=== PATIENT | male | born 1960 | race Caucasian/White ===

== ENCOUNTER 2019-11-05 12:30 | Observation (INO) | payer BC, OTHER ==
--- NOTE | 2019-11-05 12:51 | EDM.PDOC ---
ED HPI GENERAL MEDICAL PROBLEM - General Chief Complaint: General Stated Complaint: NAUSEA Time Seen by Provider: 11/05/19 12:45 Source of Information: Reports: Patient, Family, RN History Limitations: Reports: No Limitations - History of Present Illness INITIAL COMMENTS - FREE TEXT/NARRATIVE: 59 yo male presents with abdominal pain, N/V, started this am around 3am. [id number] brought him in. Pt states he drinks about 6-7 beer every evening and has tolerated this fine in the past, but thinks he may need to limit this to 3 per night. States the last time he had this pain was when he did have the 6-7 drinks in a night. States past hx of upper GI and lower GI. [facility] this [facility]. States he ate very little last night. IV fluids started and pt feeling improved after 1 liter of Normal saline. Lactic acid is elevated. This may be from alcoholism, but will check U/A, blood cultures and start Rocephin 1 gm IV X 1. will recheck the Lactic acid this evening and in the am. 2nd bolus of IV fluids given. will admit to observation, Protonix IV prophylaxis, Tylenol prn pain, Mylanta prn pain, Zofran prn for nausea. Will start CIWA assess and Ativan as needed per protocol. Abdominal Pain Score (Numeric/FACES): 5 - Related Data Allergies Allergy/AdvReac Type Severity Reaction Status Date / Time No Known Allergies Allergy Verified 11/05/19 14:41 Home Meds: Home Meds NK [No Known Home Meds] 11/05/19 [History] ED ROS GENERAL - Review of Systems Review Of Systems: See Below Constitutional: Reports: Fever. Denies: Chills HEENT: Reports: No Symptoms Respiratory: Denies: Shortness of Breath, Cough Cardiovascular: Reports: Other (chest pressure). Denies: Dyspnea on Exertion, Edema GI/Abdominal: Reports: Abdominal Pain, Nausea. Denies: Black Stool, Bloody Stool, Constipation, Diarrhea, Hematemesis Musculoskeletal: Reports: No Symptoms Skin: Reports: No Symptoms Neurological: Reports: No Symptoms Psychiatric: Reports: No Symptoms ED EXAM, GENERAL - Physical Exam Exam: See Below Exam Limited By: No Limitations General Appearance: Alert, No Apparent Distress Ears: Hearing Grossly Normal Nose: No: Nasal Tenderness, Nasal Drainage Throat/Mouth: Normal Lips, Normal Voice, No Airway Compromise Head: Atraumatic, Normocephalic Neck: Supple, Non-Tender, Full Range of Motion Respiratory/Chest: No Respiratory Distress, Lungs Clear, Normal Breath Sounds Cardiovascular: Normal Peripheral Pulses, Regular Rate, Rhythm, No Edema GI/Abdominal: Normal Bowel Sounds, Soft, No Distention Extremities: Normal Range of Motion, Non-Tender, No Pedal Edema, Normal Capillary Refill Neurological: Alert, Oriented, Normal Cognition Psychiatric: Normal Affect, Normal Mood Skin Exam: Warm, Dry, Normal Color Lymphatic: No Adenopathy Course - Vital Signs Last Recorded V/S: Last Vital Signs Temp 98.4 F 11/06/19 04:00 Pulse 76 11/06/19 04:00 Resp 16 11/06/19 04:00 BP 153/82 H 11/06/19 04:00 Pulse Ox 99 11/06/19 04:00 - Orders/Labs/Meds Orders: Active Orders 24 hr Category Date Time Status EKG Documentation Completion [RC] ASDIRECTED Care 11/05/19 12:48 Active CULTURE BLOOD [BC] Stat Lab 11/05/19 14:49 Received CULTURE BLOOD [BC] Stat Lab 11/05/19 16:20 Received Sodium Chloride 0.9% [Normal Saline] 1,000 ml Med 11/05/19 13:00 Active IV ASDIRECTED Sodium Chloride 0.9% [Normal Saline] 1,000 ml Med 11/05/19 14:00 Active IV ASDIRECTED Sodium Chloride 0.9% [Normal Saline] 1,000 ml Med 11/05/19 15:00 Active IV ASDIRECTED Medication Orders Acetaminophen (Tylenol) 650 mg PO Q6H PRN PRN Reason: Pain (mild 1-3) Last Admin: 11/05/19 16:49 Dose: 650 mg Al Hydroxide/Mg Hydroxide (Mag-Al Plus) 30 ml PO Q4H PRN PRN Reason: Abdominal Pain Sodium Chloride (Normal Saline) 1,000 mls @ 999 mls/hr IV ASDIRECTED ELIZA Last Admin: 11/05/19 12:58 Dose: 999 mls/hr Sodium Chloride (Normal Saline) 1,000 mls @ 125 mls/hr IV ASDIRECTED ELIZA Last Infusion: 11/06/19 04:17 Dose: 75 mls/hr Infusion: 11/05/19 20:30 Dose: 75 mls/hr Admin: 11/05/19 14:05 Dose: 125 mls/hr Sodium Chloride (Normal Saline) 1,000 mls @ 999 mls/hr IV ASDIRECTED ELIZA Ceftriaxone Sodium 1 gm/ (Sodium Chloride) 50 mls @ 200 mls/hr IV ONETIME ONE Stop: 11/06/19 08:14 Lorazepam (Ativan) 0.5 mg PO Q4H PRN; Protocol PRN Reason: Anxiety Last Admin: 11/05/19 18:11 Dose: 0.5 mg Ondansetron HCl (Zofran) 4 mg IVPUSH Q8H PRN PRN Reason: Nausea Labs: Laboratory Tests 11/05/19 11/05/19 11/05/19 Range/Units 13:30 13:30 13:30 WBC 11.7 H D (4.0-11.0) K/uL RBC 4.54 (4.50-6.50) M/uL Hgb 14.6 (13.0-18.0) g/dL Hct 39.9 L (40.0-54.0) % MCV 88 (76-96) fL MCH 32.2 H (27.0-32.0) pg MCHC 36.6 H (31.0-35.0) g/dL RDW 13.2 (11.0-16.0) % Plt Count 127 L (150-400) K/uL MPV 8.2 (6.0-10.0) fL Neut % (Auto) 90.4 H (45.0-70.0) % Lymph % (Auto) 4.4 L (20.0-40.0) % [place] % (Auto) 4.9 (3.0-10.0) % Eos % (Auto) 0.1 L (1.0-5.0) % Baso % (Auto) 0.2 (0.0-0.5) % Neut # (Auto) 10.56 H (2.00-7.50) K/uL Lymph # (Auto) 0.51 L (1.50-4.00) K/uL [place] # (Auto) 0.57 (0.20-0.80) K/uL Eos # (Auto) 0.01 L (0.04-0.40) K/uL Baso # (Auto) 0.02 (0.02-0.10) K/uL Sodium 135 L (136-145) mmol/L Potassium 4.8 D (3.5-5.1) mmol/L Chloride 96 L (98-107) mmol/L Carbon Dioxide 16.1 L D (21.0-32.0) mmol/L Anion Gap 27.7 H (5.0-15.0) mmol/L BUN 11 D (8-26) mg/dL Creatinine 0.95 (0.70-1.30) mg/dL Est Cr Clr Drug Dosing 87.54 mL/min Estimated GFR (MDRD) > 60 (>60) MLS/MIN BUN/Creatinine Ratio 11.6 (6-25) Glucose 92 D (74-100) mg/dL Lactic Acid 4.5 H (0.4-2.0) mmol/L Calcium 8.4 L (8.5-10.1) mg/dL Magnesium (1.8-2.4) mg/dL Total Bilirubin 1.1 H D (0.0-1.0) mg/dL AST 57 H (15-37) U/L ALT 44 (12-78) U/L Alkaline Phosphatase 61 (46-116) U/L Troponin I < 0.017 (0.000-0.060) ng/mL Total Protein 7.3 (6.4-8.2) g/dL Albumin 4.2 (3.4-5.0) g/dL Globulin 3.1 (2.2-4.2) g/dL Albumin/Globulin Ratio 1.4 (0.8-2.0) Lipase 91 (73-393) U/L TSH, Ultra Sensitive 0.280 L D (0.358-3.740) uIU/mL Urine Color Urine Appearance (CLEAR) Urine pH (5.0-8.0) Ur Specific [place] (1.003-1.030) Urine Protein (NEGATIVE) mg/dL Urine Glucose (UA) (NEGATIVE) mg/dL Urine Ketones (NEGATIVE) mg/dL Urine Occult Blood (NEGATIVE) Urine Nitrite (NEGATIVE) Urine Bilirubin (NEGATIVE) Urine Urobilinogen (0.2-1.0) E.U./dL Ur Leukocyte Esterase (NEGATIVE) Urine RBC /HPF Urine WBC /HPF Ur Squamous Epith Cells /HPF 11/05/19 11/05/19 Range/Units 13:30 14:49 WBC (4.0-11.0) K/uL RBC (4.50-6.50) M/uL Hgb (13.0-18.0) g/dL Hct (40.0-54.0) % MCV (76-96) fL MCH (27.0-32.0) pg MCHC (31.0-35.0) g/dL RDW (11.0-16.0) % Plt Count (150-400) K/uL MPV (6.0-10.0) fL Neut % (Auto) (45.0-70.0) % Lymph % (Auto) (20.0-40.0) % [place] % (Auto) (3.0-10.0) % Eos % (Auto) (1.0-5.0) % Baso % (Auto) (0.0-0.5) % Neut # (Auto) (2.00-7.50) K/uL Lymph # (Auto) (1.50-4.00) K/uL [place] # (Auto) (0.20-0.80) K/uL Eos # (Auto) (0.04-0.40) K/uL Baso # (Auto) (0.02-0.10) K/uL Sodium (136-145) mmol/L Potassium (3.5-5.1) mmol/L Chloride (98-107) mmol/L Carbon Dioxide (21.0-32.0) mmol/L Anion Gap (5.0-15.0) mmol/L BUN (8-26) mg/dL Creatinine (0.70-1.30) mg/dL Est Cr Clr Drug Dosing mL/min Estimated GFR (MDRD) (>60) MLS/MIN BUN/Creatinine Ratio (6-25) Glucose (74-100) mg/dL Lactic Acid (0.4-2.0) mmol/L Calcium (8.5-10.1) mg/dL Magnesium 1.8 (1.8-2.4) mg/dL Total Bilirubin (0.0-1.0) mg/dL AST (15-37) U/L ALT (12-78) U/L Alkaline Phosphatase (46-116) U/L Troponin I (0.000-0.060) ng/mL Total Protein (6.4-8.2) g/dL Albumin (3.4-5.0) g/dL Globulin (2.2-4.2) g/dL Albumin/Globulin Ratio (0.8-2.0) Lipase (73-393) U/L TSH, Ultra Sensitive (0.358-3.740) uIU/mL Urine Color Yellow Urine Appearance Clear (CLEAR) Urine pH 5.5 (5.0-8.0) Ur Specific [place] 1.025 (1.003-1.030) Urine Protein Negative (NEGATIVE) mg/dL Urine Glucose (UA) Negative (NEGATIVE) mg/dL Urine Ketones 80 H (NEGATIVE) mg/dL Urine Occult Blood Negative (NEGATIVE) Urine Nitrite Negative (NEGATIVE) Urine Bilirubin Negative (NEGATIVE) Urine Urobilinogen 0.2 (0.2-1.0) E.U./dL Ur Leukocyte Esterase Negative (NEGATIVE) Urine RBC Not seen /HPF Urine WBC 0-5 H /HPF Ur Squamous Epith Cells Few /HPF Meds: Medications Generic Name Dose Route Start Last Admin Trade Name Freq PRN Reason Stop Dose Admin Acetaminophen 650 mg 11/05/19 15:27 11/05/19 16:49 Tylenol PO 650 mg Q6H PRN Administration Pain (mild 1-3) Al Hydroxide/Mg Hydroxide 30 ml 11/05/19 17:19 Mag-Al Plus PO Q4H PRN Abdominal Pain Sodium Chloride 1,000 mls @ 999 mls/hr 11/05/19 13:00 11/05/19 12:58 Normal Saline IV 999 mls/hr ASDIRECTED ELIZA Administration Sodium Chloride 1,000 mls @ 125 mls/hr 11/05/19 14:00 11/06/19 04:17 Normal Saline IV Infused ASDIRECTED ELIZA Infusion Sodium Chloride 1,000 mls @ 999 mls/hr 11/05/19 15:00 Normal Saline IV ASDIRECTED ELIZA Ceftriaxone Sodium 1 gm/ 50 mls @ 200 mls/hr 11/06/19 08:00 Sodium Chloride IV 11/06/19 08:14 ONETIME ONE Lorazepam 0.5 mg 11/05/19 17:18 11/05/19 18:11 Ativan PO 0.5 mg Q4H PRN Administration Anxiety Protocol Ondansetron HCl 4 mg 11/05/19 15:27 Zofran IVPUSH Q8H PRN Nausea Discontinued Medications Generic Name Dose Route Start Last Admin Trade Name Cristal PRN Reason Stop Dose Admin Ceftriaxone Sodium 1 gm/ 50 mls @ 200 mls/hr 11/05/19 14:52 11/05/19 16:15 Sodium Chloride IV 11/05/19 15:06 200 mls/hr ONETIME ONE Administration Pantoprazole Sodium 80 mg/ 100 mls @ 200 mls/hr 11/05/19 15:28 11/05/19 16:56 Sodium Chloride IV 11/05/19 15:57 200 mls/hr .BOLUS ONE Administration Thiamine HCl 100 mg 11/05/19 17:54 11/05/19 18:05 Vitamin B-1 IM 11/05/19 17:55 100 mg ONETIME ONE Administration - Re-Assessments/Exams Free Text/Narrative Re-Assessment/Exam: 11/05/19 14:54 Lactic acid is elevated 4.5 today. Will bolus with 2nd Liter IV fluids. U/A w micro and blood cultures x 2. Rocephin 1 gm IV after blood cultures. 11/05/19 18:10 TC to ehospitalist with labs and review of tx thus far. Protonix IV given, Pt is eating supper, poor appetite, upper abdominal pain for quite some time and did have upper GI and colonoscopy studies in past and states normal results. Thiamine 100 mg IM given and start of Ativan per [facility] protocol. Departure - Departure Time of Disposition: 16:35 (11/05/2019) Disposition: Refer to Observation Condition: Good Clinical Impression: Dehydration, Upper abdominal pain, unspecified, Ketoacidosis - Discharge Information *PRESCRIPTION DRUG MONITORING PROGRAM REVIEWED*: Not Applicable *COPY OF PRESCRIPTION DRUG MONITORING REPORT IN PATIENT ANDREA: Not Applicable Sepsis Event Note - Evaluation Current Stage of Sepsis: Ruled Out Reason for Ruling Out Sepsis: LE 11-05-19: no source of infection noted, no cough, no UTI, no change in skin integrity. Ketoacidosis r/t alcohol use likely contributing to elevated lactic acid. - Focused Exam Date Exam was Performed: 11/06/19 Time Exam was Performed: 07:58 - My Orders Last 24 Hours: My Active Orders 11/05/19 12:48 EKG Documentation Completion [RC] ASDIRECTED 11/05/19 13:00 Sodium Chloride 0.9% [Normal Saline] 1,000 ml IV ASDIRECTED 11/05/19 14:00 Sodium Chloride 0.9% [Normal Saline] 1,000 ml IV ASDIRECTED 11/05/19 14:49 CULTURE BLOOD [BC] Stat 11/05/19 15:00 Sodium Chloride 0.9% [Normal Saline] 1,000 ml IV ASDIRECTED 11/05/19 16:20 CULTURE BLOOD [BC] Stat - Assessment/Plan Last 24 Hours: My Active Orders 11/05/19 12:48 EKG Documentation Completion [RC] ASDIRECTED 11/05/19 13:00 Sodium Chloride 0.9% [Normal Saline] 1,000 ml IV ASDIRECTED 11/05/19 14:00 Sodium Chloride 0.9% [Normal Saline] 1,000 ml IV ASDIRECTED 11/05/19 14:49 CULTURE BLOOD [BC] Stat 11/05/19 15:00 Sodium Chloride 0.9% [Normal Saline] 1,000 ml IV ASDIRECTED 11/05/19 16:20 CULTURE BLOOD [BC] Stat Plan: Placed on observation with dehydration, chronic upper, abdominal pain, ketoacidosis, corrected with IV fluid bolus 2 liter. Pain to abdomen has improved. Labs reviewed. Will repeat Lactic acid at 1730 today and repeat labs in am. Will cover pt with CIAWA protocol if needed for any alcohol withdrawal. Iv fluids continue at 125cc/hr and close monitor for pt for any increase in abdominal pain.
[2019-11-05] MEDS ORDERED: Sodium Chloride 0.9% 1,000 ML IV SCH ×3 (13:00→15:00)
[2019-11-05] MEDS ORDERED: cefTRIAXone 1 GM in Sodium Chloride 0.9% 50 ML IV ONE (14:52)
[2019-11-05] MEDS ORDERED: Ondansetron 4 MG/2 ML SDV IVPUSH PRN (15:27)
[2019-11-05] MEDS ORDERED: Acetaminophen 325 MG Tab PO PRN (15:27)
[2019-11-05] MEDS ORDERED: Pantoprazole 80 MG in Sodium Chloride 0.9% 100 ML IV ONE (15:28)
[2019-11-05] MEDS ORDERED: LORazepam 0.5 MG Tab PO PRN (17:18)
[2019-11-05] MEDS ORDERED: Aluminum Hydroxide/Magnesium Hydroxide/Simethicone Susp 30 ML Cup PO PRN (17:19)
[2019-11-05] MEDS ORDERED: Thiamine 200 MG/2 ML MDV IM ONE (17:54)
--- NOTE | 2019-11-05 18:57 | PCM.SN ---
- Free Text/Narrative Note: Reji Davenport Hospitalist Consultation Note Hospitalist was consulted Consult on Anion Gap and lactic acidosis on Mr Tao Small 58 who presented with abdominal pain, nausea and vomiting (non- bloody) following alcohol use last night. He also has poor appetite. HPI: 59 y/o M with chronic alcohol misuse consumes 6-7 beer every night, chronic abdominal pain, [facility] and [facility] unknown time frame. His abdominal pains exacerbated by drinking 6-7 beer occasionally and he thinks he should cut back to 3/night. He does not have any other medical problems on chart review. His lab work was remarkable for elevated anion gap 27.2 and lactic acidosis to 4.5. WBC was 11.7, platelet count 127, CO2 16.1, BUN11, Cr 0.95, Tbili 1.1, AST57, ALT44. Lipase 91 ROS: See Marlyn Miguel CNP ED note. Home Meds: None per EMR Pertinent Medical Hx: None documented in EMR Pertinent social Hx: See EMR Vital Signs: Reviewed see EMR NOT A VIDEO CALL Labs: reviewed see HPI above for pertinent finding. Imaging: Not performed. Assessment/Plan: Lactic acidosis in the setting of alcohol abuse, not meeting sepsis criteria. Resolved following Normal saline administration. Elevated anion gap. Likely secondary to ketoacidosis from alcohol use, ? starvation ketoacidosis from poor oral intake, other causes like sepsis, DKA, ruled out, pt. is not diabetic, does not have foci of infection. Discussed with Marlyn Miguel that this lab can be repeated, timing dependent on severity of patient illness or acute changes. Acute on Chronic abdominal pain patient should have US abdomen and gallbladder to evaluate for Cholelithiasis, cholecystitis, Can also evaluate for hepatocellular disease from chronic alcohol misuse. Patient should be referred to GI as an OP for further management of chronic abdominal pain. No indication for antibiotics at this time. Continue with PPI ?alcohol induced gastritis. Rest of care per Marlyn Miguel CNP note. Thank you for involving [facility] in the care of this patient. Please call with questions/concerns.
[2019-11-06] MEDS ORDERED: cefTRIAXone 1 GM in Sodium Chloride 0.9% 50 ML IV ONE (08:00)
[2019-11-06 08:06] VITALS: BP 157/85; PULSE 89
--- NOTE | 2019-11-09 14:32 | PCM.DCSUM1 ---
Discharge Summary - Discharge Data Discharge Date: 11/06/19 Discharge Disposition: Home, Self-Care 01 Condition: Good - Referral to Home Health Primary Care Physician: PCP None - Patient Instructions Diet: Regular Diet as Tolerated Activity: Rest and Relax Today Driving: May Drive Today Notify Provider of: Fever, Nausea and/or Vomiting Other/Special Instructions: Monitor BP and goal of less than 130/80. U/S and referral to GI specialist at [place], [place]. Recommend limit of alcoholic beverages to 2/day. Consider increase of calcium in diet. RTC in 2-3 weeks for follow-up. Return to ER if symptoms worsen. - Discharge Plan *PRESCRIPTION DRUG MONITORING PROGRAM REVIEWED*: Not Applicable *COPY OF PRESCRIPTION DRUG MONITORING REPORT IN PATIENT ANDREA: Not Applicable Prescriptions/Med Rec: Pantoprazole Sodium 40 mg PO DAILY #30 tablet. Home Medications: Home Meds Pantoprazole Sodium 40 mg PO DAILY #30 tablet. 11/06/19 [Rx] Patient Handouts: Gastritis, Adult, [id number], Dehydration, Adult, Easy-to- Read Forms: ED Department Discharge Referrals: PCP,None [Primary Care Provider] - - Discharge Summary/Plan Comment DC Time >30 min.: No Discharge Summary/Plan Comment: Follow-up with order for outpt Abdominal U/S for work-up of choleycystitis or pancreatitis. Referral to GI for follow-up of chronic upper GI pain. Protonix daily ordered. Symptoms have improved. Recommend to limit alcohol use. Diet as tolerated. Rest and relax today. F/U in clinic in 2-3 weeks with PCP. - Patient Data Vitals - Most Recent: Last Vital Signs Temp 98.0 F 11/06/19 08:00 Pulse 89 11/06/19 08:00 Resp 16 11/06/19 08:00 BP 157/85 H 11/06/19 08:00 Pulse Ox 99 11/06/19 08:00 Weight - Most Recent: 160 lb 8 oz [id number] Results - Last 24 hrs: Microbiology 11/05/19 16:20 Aerobic Blood Culture - Preliminary Blood NO GROWTH AFTER 3 DAYS Anaerobic Blood Culture - Preliminary NO GROWTH AFTER 3 DAYS 11/05/19 15:05 Aerobic Blood Culture - Preliminary Blood NO GROWTH AFTER 3 DAYS Anaerobic Blood Culture - Preliminary NO GROWTH AFTER 3 DAYS Med Orders - Current: Current Medications Discontinued Medications Acetaminophen (Tylenol) 650 mg PO Q6H PRN PRN Reason: Pain (mild 1-3) Last Admin: 11/05/19 16:49 Dose: 650 mg Al Hydroxide/Mg Hydroxide (Mag-Al Plus) 30 ml PO Q4H PRN PRN Reason: Abdominal Pain Sodium Chloride (Normal Saline) 1,000 mls @ 999 mls/hr IV ASDIRECTED [facility] Last Admin: 11/05/19 12:58 Dose: 999 mls/hr Sodium Chloride (Normal Saline) 1,000 mls @ 125 mls/hr IV ASDIRECTED [facility] Last Infusion: 11/06/19 04:17 Dose: Infused Sodium Chloride (Normal Saline) 1,000 mls @ 999 mls/hr IV ASDIRECTED [facility] Ceftriaxone Sodium 1 gm/ (Sodium Chloride) 50 mls @ 200 mls/hr IV ONETIME ONE Stop: 11/05/19 15:06 Last Admin: 11/05/19 16:15 Dose: 200 mls/hr Pantoprazole Sodium 80 mg/ (Sodium Chloride) 100 mls @ 200 mls/hr IV .BOLUS ONE Stop: 11/05/19 15:57 Last Admin: 11/05/19 16:56 Dose: 200 mls/hr Ceftriaxone Sodium 1 gm/ (Sodium Chloride) 50 mls @ 200 mls/hr IV ONETIME ONE Stop: 11/06/19 08:14 Last Admin: 11/06/19 08:27 Dose: 200 mls/hr Lorazepam (Ativan) 0.5 mg PO Q4H PRN; Protocol PRN Reason: Anxiety Last Admin: 11/05/19 18:11 Dose: 0.5 mg Ondansetron HCl (Zofran) 4 mg IVPUSH Q8H PRN PRN Reason: Nausea Thiamine HCl (Vitamin B-1) 100 mg IM ONETIME ONE Stop: 11/05/19 17:55 Last Admin: 11/05/19 18:05 Dose: 100 mg
== END 2019-11-06 09:34 | disposition home or self-care (01) ==
LOC: LB.ED 12:30 → LB.MS 15:23
PROVIDERS: ADMIT Nurse Practitioner Family; ATTEND Nurse Practitioner Family
DX: E86.0 Dehydration (principal); G89.29 Other chronic pain; R10.10 Upper abdominal pain, unspecified; E87.2 Acidosis
CPT/HCPCS: 36415; 80048; 80053; 81001; 83605; 83690; 83735; 84443; 84484; 85025; 87040; 87804; 87804-59; 93005; 96360; 96361; 96365; 96366; 96367; 96372; 99285-25; A9270-GY; C9113; G0378; J0696; J3411; J7030; J7050

== ENCOUNTER 2024-11-20 08:47 | Emergency (ER) | payer OTHER ==
[2024-11-20] MEDS: amLODIPine 5 MG Tab PO ONE (09:22)
[2024-11-20 09:35] LABS: BASOPHILS ABSOLUTE AUTO 0.02 K/uL (0.02-0.10); BASOPHILS PERCENT AUTO 0.3 % (0.0-0.5); EOSINOPHILS ABSOLUTE AUTO 0.09 K/uL (0.04-0.40); EOSINOPHILS PERCENT AUTO 1.4 % (1.0-5.0); HEMATOCRIT 42.9 % (40.0-54.0); HEMOGLOBIN 15.6 g/dL (13.0-18.0); LYMPHOCYTES PERCENT AUTO 22.1 % (20.0-40.0); MEAN CORPUSCULAR HEMOGLOBIN 31.8 pg (27.0-32.0); MEAN CORPUSCULAR HGB CONC 36.4 g/dL (31.0-35.0); MEAN CORPUSCULAR VOLUME 87 fL (76-96); MEAN PLATELET VOLUME 8.1 fL (6.0-10.0); MONOCYTES ABSOLUTE AUTO 0.83 K/uL (0.20-0.80); MONOCYTES PERCENT AUTO 13.1 % (3.0-10.0); NEUTROPHILS PERCENT AUTO 63.1 % (45.0-70.0); PLATELET COUNT,PLT 146 K/uL (150-400); RED BLOOD CELL COUNT 4.91 M/uL (4.50-6.50); RED CELL DISTRIBUTION WIDTH 13.3 % (11.0-16.0); WHITE BLOOD CELL COUNT,WBC 6.3 K/uL (4.0-11.0)
[2024-11-20 09:53] LABS: PROTHROMBIN TIME 10.7 sec (9.0-11.5)
[2024-11-20 09:53] LABS: A/G RATIO 1.3 (0.8-2.0); ALBUMIN 4.4 g/dL (3.4-5.0); ANION GAP 19.1 mmol/L (5.0-15.0); BILIRUBIN TOTAL 1.3 mg/dL (0.0-1.0); BUN/CREATININE RATIO 6.9 (6-25); CALCIUM 9.3 mg/dL (8.5-10.1); CARBON DIOXIDE,CO2 23.7 mmol/L (21.0-32.0); CREATININE 0.72 mg/dL (0.70-1.30); EST CRCL DRUG DOSING (CG) 114.84 mL/min; POTASSIUM,K 3.8 mmol/L (3.5-5.1); PROTEIN TOTAL,TP 7.9 g/dL (6.4-8.2); TROPONIN I HIGH SENSITIVITY 11.8 pg/ml (<=60.4)
[2024-11-20] MEDS: Labetalol 100 MG/20 ML MDV IVPUSH ONE (10:02)
[2024-11-20 10:07] LABS: APPEARANCE,URINE CLEAR (CLEAR); COLOR,URINE YELLOW; PH,URINE 6.5 (5.0-8.0); PROTEIN,URINE 100 mg/dL (NEGATIVE)
[2024-11-20 10:08] LABS: BILIRUBIN,URINE SMALL (NEGATIVE); GLUCOSE,URINE NEGATIVE (NEGATIVE); KETONES,URINE >=160 mg/dL (NEGATIVE); LEUKOCYTE ESTERASE,URINE NEGATIVE (NEGATIVE); NITRITE,URINE NEGATIVE (NEGATIVE); OCCULT BLOOD,URINE NEGATIVE (NEGATIVE); RBC,URINE 0-5 /HPF; WBC,URINE NOT SEEN /HPF
== END 2024-11-20 10:45 | disposition home or self-care (01) ==
LOC: LB.ED 08:47
DX: I10 Essential (primary) hypertension (principal); Z79.899 Other long term (current) drug therapy
CPT/HCPCS: 36415; 71045; 80053; 81001; 84484; 85025; 85610; 85730; 93005; 96374; 99285; A9270; J1920

== ENCOUNTER 2025-01-30 10:59 | Emergency (ER) | payer OTHER ==
[2025-01-30] MEDS ORDERED: Naloxone 2 MG/2 ML Syringe IVPUSH PRN ×2 (11:22→12:08)
[2025-01-30] MEDS: Ondansetron 4 MG/2 ML SDV IVPUSH ONE ×2 (11:25→16:06)
[2025-01-30] MEDS: HYDROmorphone 1 MG/ML Syringe IVPUSH ONE ×2 (11:26→12:28)
[2025-01-30 12:06] LABS: BASOPHILS ABSOLUTE AUTO 0.03 K/uL (0.02-0.10); BASOPHILS PERCENT AUTO 0.3 % (0.0-0.5); EOSINOPHILS PERCENT AUTO 1.9 % (1.0-5.0); HEMATOCRIT 40.7 % (40.0-54.0); HEMOGLOBIN 15.1 g/dL (13.0-18.0); LYMPHOCYTES ABSOLUTE AUTO 2.51 K/uL (1.50-4.00); LYMPHOCYTES PERCENT AUTO 23.9 % (20.0-40.0); MEAN CORPUSCULAR HEMOGLOBIN 31.5 pg (27.0-32.0); MEAN CORPUSCULAR HGB CONC 37.1 g/dL (31.0-35.0); MEAN CORPUSCULAR VOLUME 85 fL (76-96); MEAN PLATELET VOLUME 8.4 fL (6.0-10.0); MONOCYTES ABSOLUTE AUTO 1.56 K/uL (0.20-0.80); MONOCYTES PERCENT AUTO 14.8 % (3.0-10.0); NEUTROPHILS ABSOLUTE AUTO 6.21 K/uL (2.00-7.50); NEUTROPHILS PERCENT AUTO 59.1 % (45.0-70.0); PLATELET COUNT,PLT 185 K/uL (150-400); RED BLOOD CELL COUNT 4.79 M/uL (4.50-6.50); RED CELL DISTRIBUTION WIDTH 13.2 % (11.0-16.0); WHITE BLOOD CELL COUNT,WBC 10.5 K/uL (4.0-11.0)
[2025-01-30 12:17] LABS: BILIRUBIN TOTAL 0.7 mg/dL (0.0-1.0); POTASSIUM,K 4.5 mmol/L (3.5-5.1)
[2025-01-30 12:42] LABS: A/G RATIO 1.3 (0.8-2.0); ANION GAP 21.1 mmol/L (5.0-15.0); BUN/CREATININE RATIO 6.3 (6-25); CARBON DIOXIDE,CO2 21.4 mmol/L (21.0-32.0); CREATININE 1.11 mg/dL (0.70-1.30); EST CRCL DRUG DOSING (CG) 74.49 mL/min; PROTEIN TOTAL,TP 7.2 g/dL (6.4-8.2)
[2025-01-30 14:08] LABS: APPEARANCE,URINE CLEAR (CLEAR); COLOR,URINE YELLOW
[2025-01-30 14:09] LABS: BILIRUBIN,URINE NEGATIVE (NEGATIVE); GLUCOSE,URINE NEGATIVE (NEGATIVE); HYALINE CASTS,URINE OCCASIONAL /HPF; KETONES,URINE 15 mg/dL (NEGATIVE); LEUKOCYTE ESTERASE,URINE NEGATIVE (NEGATIVE); NITRITE,URINE NEGATIVE (NEGATIVE); OCCULT BLOOD,URINE TRACE-INTACT (NEGATIVE); PROTEIN,URINE TRACE mg/dL (NEGATIVE); RBC,URINE 0-5 /HPF; UROBILINOGEN,URINE 0.2 E.U./dL (0.2-1.0); WBC,URINE NOT SEEN /HPF
[2025-01-30] MEDS: Gabapentin 300 MG Cap PO ONE (14:10)
[2025-01-30] MEDS: Sodium Chloride 0.9% 1,000 ML IV ONE (14:12)
[2025-01-30] MEDS: Lisinopril 20 MG Tab PO SCH (14:19)
[2025-01-30] MEDS: Ketamine 200 MG/20 ML MDV IVPUSH ONE (16:50)
== END 2025-01-30 16:45 ==
LOC: LB.ED 10:59
DX: G62.9 Polyneuropathy, unspecified (principal); I10 Essential (primary) hypertension; Z79.899 Other long term (current) drug therapy
CPT/HCPCS: 36415; 72131; 74176; 80053; 81001; 82550; 83690; 85025; 85651; 86140; 96374; 96375; 96376; 99285-25; A9270-GY; J1171; J2405; J7030